=== PATIENT | female | born 1985 | race American Indian/Alaskan Native ===

== ENCOUNTER 2017-03-30 18:21 | Emergency (ER) | payer SELFPAY ==
[2017-03-30] MEDS ORDERED: TORADOL IM ONE (23:21)
--- NOTE | 2017-03-30 23:22 | XRay Report ---
FINAL REPORT PROCEDURE: XR NASAL BONE 3+V TECHNIQUE: Nasal bones, three views including Jones and both lateral projections. CPT 83729 HISTORY: NOSE PAIN COMPARISON: No prior studies are available for comparison. FINDINGS: Bone mineralization: Normal. Fractures: None. Paranasal sinuses: Cle[place]. IMPRESSION: Normal Examination.
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
[2017-03-31 00:34] VITALS: BP 135/79
== END 2017-03-31 00:12 | disposition home or self-care (01) ==
LOC: ED 18:21
DX: J34.89 Other specified disorders of nose and nasal sinuses (principal); Y04.8XXA Assault by other bodily force, initial encounter; Y93.89 Activity, other specified; Y99.8 Other external cause status; Y92.89 Other specified places as the place of occurrence of the external cause; Z91.018 Allergy to other foods; Z87.891 Personal history of nicotine dependence
CPT/HCPCS: 70160; 96372; 99283; J1885